=== PATIENT | female | born 1955 | race African-American/Black ===

== ENCOUNTER 2022-10-02 10:12 | Inpatient (IN) | payer OTHER, BC ==
[2022-10-02 10:32] VITALS: BMI 58.5
[2022-10-02] MEDS ORDERED: ACETAMINOPHEN 500 MG TABLET (FP) PO ONE (12:03)
[2022-10-02] MEDS ORDERED: ACETAMINOPHEN 500 MG TABLET (FP) ONE (13:51)
[2022-10-02 14:46] LABS: BASO % 0.4 % (0-2.0); EOS % 0.6 % (0-4.5); HEMATOCRIT 39.9 % (32.4-45.2); HEMOGLOBIN 13.2 GM/dL (10.7-15.3); LYMPH % 14.2 % (8-40); MCH 28.8 pg (25.7-33.7); MEAN CELL VOLUME 87.4 fl (80-96); MEAN PLT VOLUME 7.7 fl (7.5-11.1); MONO % 4.8 % (3.8-10.2); PLATELET COUNT 372 10^3/uL (134-434); RBC 4.57 M/mm3 (3.60-5.2); RDW 15.9 % (11.6-15.6); WHITE BLOOD COUNT 7.6 K/mm3 (4.0-10.0)
[2022-10-02 15:05] LABS: CHLORIDE 103 mmol/L (98-107); SODIUM 140 mmol/L (136-145)
[2022-10-02 15:07] LABS: ALBUMIN 2.9 g/dl (3.4-5.0); CALCIUM 8.9 mg/dL (8.5-10.1); CO2 32 mmol/L (21-32); GLUCOSE,RANDOM 82 mg/dL (74-106)
[2022-10-02 15:08] LABS: BLOOD UREA NITROGEN 11.4 mg/dL (7-18)
[2022-10-02 15:10] LABS: CREATININE 0.7 mg/dL (0.55-1.3)
[2022-10-02 15:12] LABS: BILIRUBIN,TOTAL 0.6 mg/dL (0.2-1); TOT PROT 7.4 g/dl (6.4-8.2)
[2022-10-02 15:13] LABS: ALK PHOS 109 U/L (45-117)
[2022-10-02 15:21] LABS: ANION GAP 5 MMOL/L (8-16); SGOT/AST 77 U/L (15-37); SGPT/ALT 22 U/L (13-61)
[2022-10-02 17:33] LABS: CALCIUM 8.9 mg/dL (8.5-10.1)
[2022-10-02 17:34] LABS: BLOOD UREA NITROGEN 12.2 mg/dL (7-18)
[2022-10-02] MEDS ORDERED: LIDOCAINE 5% TOPICAL PATCH TP ONE (17:34)
[2022-10-02 17:37] LABS: CREATININE 0.6 mg/dL (0.55-1.3)
[2022-10-02] MEDS ORDERED: PATIENT'S OWN MEDICATION (NON-FORMULARY) (Semaglutide [Ozempic] 1 MG/0.75 ML Pen.Injctr) SQ SCH (17:45)
[2022-10-02] MEDS ORDERED: LIDOCAINE 5% TOPICAL PATCH ONE (17:52)
[2022-10-02] MEDS: INSULIN SLIDING SCALE (NOVOLOG) 1 VIAL SQ SCH (23:10)
[2022-10-02] MEDS: HEPARIN NA (PORCINE) 5,000 UNITS/ML 1ML VIAL SQ SCH (23:10)
[2022-10-02] MEDS: DULoxetine HCL 30 MG CAPSULE.DR PO SCH (23:10)
[2022-10-02] MEDS: GABAPENTIN 300 MG CAPSULE PO SCH (23:10)
[2022-10-02] MEDS: LIDOCAINE PATCH REMOVAL MC SCH (23:10)
[2022-10-03] MEDS: ACETAMINOPHEN 325 MG TABLET (FP) PO PRN ×4 (01:16→23:15)
[2022-10-03] MEDS: HEPARIN NA (PORCINE) 5,000 UNITS/ML 1ML VIAL SQ SCH ×3 (06:25→21:40)
[2022-10-03] MEDS: GABAPENTIN 300 MG CAPSULE PO SCH ×3 (06:25→21:40)
[2022-10-03] MEDS: LEVOTHYROXINE NA 75 MCG TABLET (FP) PO SCH (06:26)
[2022-10-03] MEDS: INSULIN SLIDING SCALE (NOVOLOG) 1 VIAL SQ SCH ×4 (06:26→21:41)
[2022-10-03] MEDS: DULoxetine HCL 30 MG CAPSULE.DR PO SCH ×2 (10:30→21:40)
[2022-10-03] MEDS: FOLIC ACID 1 MG TABLET (FP) PO SCH (10:30)
[2022-10-03] MEDS: ARIPiprazole 5 MG TABLET PO SCH (12:29)
[2022-10-03 14:25] VITALS: RESP 18
[2022-10-03] MEDS ORDERED: INSULIN (NOVOLOG) ASPART 100 UNITS/ML 10ML VIAL ONE (21:09)
[2022-10-03] MEDS: LIDOCAINE PATCH REMOVAL MC SCH (21:39)
[2022-10-04] MEDS: HEPARIN NA (PORCINE) 5,000 UNITS/ML 1ML VIAL SQ SCH ×3 (06:21→21:23)
[2022-10-04] MEDS: GABAPENTIN 300 MG CAPSULE PO SCH ×3 (06:21→21:23)
[2022-10-04] MEDS: INSULIN SLIDING SCALE (NOVOLOG) 1 VIAL SQ SCH ×4 (06:22→21:25)
[2022-10-04] MEDS: LEVOTHYROXINE NA 75 MCG TABLET (FP) PO SCH (06:22)
[2022-10-04] MEDS: ARIPiprazole 5 MG TABLET PO SCH (10:37)
[2022-10-04] MEDS: ACETAMINOPHEN 325 MG TABLET (FP) PO PRN ×2 (10:37→21:23)
[2022-10-04] MEDS: FOLIC ACID 1 MG TABLET (FP) PO SCH (10:38)
[2022-10-04] MEDS: DULoxetine HCL 30 MG CAPSULE.DR PO SCH ×2 (10:41→21:23)
[2022-10-04] MEDS: NYSTATIN 100,000 UNIT/GM TOPICAL CREAM 15 GM TUBE TP SCH ×2 (15:14→21:40)
[2022-10-04] MEDS: BACITRACIN 15 GM TUBE TOPICAL OINTMENT TP SCH ×2 (15:14→21:23)
[2022-10-04] MEDS: LIDOCAINE PATCH REMOVAL MC SCH (21:37)
[2022-10-05] MEDS: ACETAMINOPHEN 325 MG TABLET (FP) PO PRN ×3 (03:49→18:26)
[2022-10-05] MEDS: LEVOTHYROXINE NA 75 MCG TABLET (FP) PO SCH (06:47)
[2022-10-05] MEDS: GABAPENTIN 300 MG CAPSULE PO SCH ×3 (06:47→22:07)
[2022-10-05] MEDS: HEPARIN NA (PORCINE) 5,000 UNITS/ML 1ML VIAL SQ SCH ×3 (06:47→22:07)
[2022-10-05] MEDS: INSULIN SLIDING SCALE (NOVOLOG) 1 VIAL SQ SCH ×4 (06:48→22:11)
[2022-10-05] MEDS ORDERED: AMINO ACIDS/PROTEIN HYDROLYS 30 ML LIQUID.PKT PO SCH (08:00)
[2022-10-05] MEDS: DULoxetine HCL 30 MG CAPSULE.DR PO SCH ×2 (10:39→22:07)
[2022-10-05] MEDS: ARIPiprazole 5 MG TABLET PO SCH (10:39)
[2022-10-05] MEDS: FOLIC ACID 1 MG TABLET (FP) PO SCH (10:39)
[2022-10-05] MEDS: NYSTATIN 100,000 UNIT/GM TOPICAL CREAM 15 GM TUBE TP SCH ×2 (10:39→22:08)
[2022-10-05] MEDS: BACITRACIN 15 GM TUBE TOPICAL OINTMENT TP SCH ×2 (13:38→22:08)
[2022-10-05] MEDS: LIDOCAINE PATCH REMOVAL MC SCH (22:08)
[2022-10-06] MEDS: ACETAMINOPHEN 325 MG TABLET (FP) PO PRN (01:40)
[2022-10-06 05:58] VITALS: BP 117/73; PULSE 94; TEMP 98.3
== END 2022-10-06 06:00 | DRG 554 ==
LOC: JER 10:12 → JERBED 16:30 → OBSVTOIN 17:32 → J7W 23:12
PROVIDERS: ADMIT Internal Medicine; ATTEND Internal Medicine
DX: M17.0 Bilateral primary osteoarthritis of knee (principal); E87.0 Hyperosmolality and hypernatremia; Z68.43 Body mass index [BMI] 50.0-59.9, adult; M16.0 Bilateral primary osteoarthritis of hip; F20.9 Schizophrenia, unspecified; F32.A Depression, unspecified; E66.01 Morbid (severe) obesity due to excess calories; I10 Essential (primary) hypertension; E11.40 Type 2 diabetes mellitus with diabetic neuropathy, unspecified; E78.5 Hyperlipidemia, unspecified; E88.09 Other disorders of plasma-protein metabolism, not elsewhere classified; L89.151 Pressure ulcer of sacral region, stage 1
CPT/HCPCS: 0241U-QW; 36415; 70450-TC; 72125-TC; 72170-TC-FY; 73502-TC-LT-FY; 73552-TC-LT-FY; 73564-TC-LT-FY; 73700-TC-RT; 80048; 80053; 82962; 85025; 86850; 86900; 86901; 93005; 93010; 97116-GP; 97162-GP; 99285-25; C9803-CS; G0378; J1644; U0003; U0005

== ENCOUNTER 2023-01-01 04:32 | Day surgery (SDC) | payer MEDICARE, BC ==
[2022-12-17 14:34] VITALS: BMI 60.5
[2023-01-01] MEDS ORDERED: TRIAMCINOLONE ACET 40MG/1ML VIAL ONE (07:35)
[2023-01-01] MEDS ORDERED: BUPIVACAINE HCL/PF 0.25% (2.5MG/ML) 10 ML VIAL ONE (07:35)
[2023-01-01] MEDS ORDERED: LIDOCAINE HCL/PF 1% SDV 5ML VIAL ONE (07:35)
[2023-01-01] MEDS ORDERED: BUPIVACAINE HCL/PF 0.5% (5MG/ML) 10 ML VIAL ONE (07:35)
[2023-01-01 11:12] VITALS: TEMP 98
[2023-01-01] MEDS ORDERED: IOHEXOL 180 MG/1 ML ML IJ ONE (15:10)
[2023-01-01] MEDS ORDERED: LIDOCAINE 1% P/F 10 MG/ML VIAL PNB ONE (15:10)
[2023-01-01] MEDS ORDERED: BUPIVACAINE HCL/PF 0.5% (5MG/ML) 10 ML VIAL PNB ONE (15:10)
[2023-01-01] MEDS ORDERED: TRIAMCINOLONE ACET 40MG/1ML VIAL IM ONE (15:10)
[2023-01-01 15:37] VITALS: BP 121/68; PULSE 86; RESP 16
== END 2023-01-01 16:05 | disposition home or self-care (01) ==
LOC: JASU-SURG 04:32
PROVIDERS: ATTEND Pain Medicine Pain Medicine
PROC: 3E0U3BZ Introduction of Anesthetic Agent into Joints, Percutaneous Approach (ICD-10-PCS; 2023-01-01)
PROC: 3E0U33Z Introduction of Anti-inflammatory into Joints, Percutaneous Approach (ICD-10-PCS; principal; 2023-01-01 13:30)
DX: M16.12 Unilateral primary osteoarthritis, left hip (principal)
CPT/HCPCS: 76000-TC-FY